=== PATIENT | male | born 1995 | race Caucasian/White ===

== ENCOUNTER 2017-02-13 00:16 | Emergency (ER) | payer SELFPAY ==
[~2017-02-13] VITALS: Ht 185.4 cm; Wt 129.3 kg
[~2017-02-13 00:16] MED LIST: AMOXICILLIN500 MG PO; BENADRYL50 MG PO; CEPHALEXIN500 M1 PO; HYDROCODONE BIT1 T11 PO; IBU400 MG PO; KEFLEX500 MG PO; MOTRIN800 MG PO; Motrin,Rufen800 MG PO; NKHM; PREDNICOT20 MG PO; ZITHROMAX250 MG PO
[2017-02-13 00:22] VITALS: BP 145/96
[2017-02-13] MEDS ORDERED: AUGMENTIN 875-875 MG PO (01:22)
== END 2017-02-13 01:46 | disposition home or self-care (01) ==
LOC: ED 00:16
DX: H61.22 Impacted cerumen, left ear (principal); J02.9 Acute pharyngitis, unspecified; Z88.2 Allergy status to sulfonamides

== ENCOUNTER 2020-08-31 11:55 | Emergency (ER) | payer BC ==
[~2020-08-31] VITALS: Wt 122.5 kg
[~2020-08-31 11:55] MED LIST changes: +AUGMENTIN 875-875 MG PO
[2020-08-31 12:10] VITALS: BP 148/62
[2020-08-31] MEDS ORDERED: OFLOXACIN 5 ML5 M3 OT (12:12)
[2020-08-31] MEDS ORDERED: METHOCARBAMOL750 M1 PO (12:12)
[2020-08-31] MEDS ORDERED: Tobrex Ophth S2.5 ML OPH (12:27)
== END 2020-08-31 12:28 | disposition home or self-care (01) ==
LOC: ED 11:55
DX: S05.02XA Injury of conjunctiva and corneal abrasion without foreign body, left eye, initial encounter (principal); Z88.2 Allergy status to sulfonamides; Z79.899 Other long term (current) drug therapy; X58.XXXA Exposure to other specified factors, initial encounter; Y93.89 Activity, other specified; Y92.89 Other specified places as the place of occurrence of the external cause; Y99.8 Other external cause status

== ENCOUNTER → 2022-08-04 | Outpatient (CLI) | payer OTHER ==
[~2022-08-04] MED LIST changes: +METHOCARBAMOL750 M1 PO; +OFLOXACIN 5 ML5 M3 OT; +Tobrex Ophth S2.5 ML OPH
== END | disposition home or self-care (01) ==
LOC: LAB 18:24
PROVIDERS: ATTEND Internal Medicine Cardiovascular Disease
DX: R00.2 Palpitations (principal)

== ENCOUNTER 2024-03-01 18:28 | Emergency (ER) | payer OTHER ==
[~2024-03-01] VITALS: Ht 185.4 cm; Wt 145.1 kg
[2024-03-01 18:34] VITALS: BP 149/86
[2024-03-01] MEDS ORDERED: methylPREDNISolone sod succ 125 MG VIAL IM ONE (18:40)
[2024-03-01] MEDS ORDERED: CYCLOBENZAPRINE5 M3 PO (18:40)
[2024-03-01] MEDS ORDERED: Ketorolac Tromethamine 30 MG/ML VIAL IM ONE (18:40)
== END 2024-03-01 19:11 | disposition home or self-care (01) ==
LOC: ED 18:28
DX: G89.29 Other chronic pain (principal); M54.50 Low back pain, unspecified; I10 Essential (primary) hypertension; F41.9 Anxiety disorder, unspecified; F31.9 Bipolar disorder, unspecified; Z88.2 Allergy status to sulfonamides; Z98.890 Other specified postprocedural states

== ENCOUNTER 2024-06-11 13:59 | Emergency (ER) | payer OTHER ==
[~2024-06-11] VITALS: Ht 185.4 cm; Wt 145.1 kg
[~2024-06-11 13:59] MED LIST changes: +CYCLOBENZAPRINE5 M3 PO
[2024-06-11 14:05] VITALS: BP 135/55
[2024-06-11] MEDS ORDERED: ACETAMINOPHEN 325 MG TAB PO ONE (14:25)
[2024-06-11 14:35] LABS: BASO # 0.1 10*3/uL (0.0-0.1); BASO % 0.7 % (0.0-1.0); EOS % 0.6 % (1.0-4.0); HEMATOCRIT 43.8 % (42.0-52.0); LYMPH # 1.1 10*3/uL (1.3-4.4); LYMPH % 16.4 % (27.0-41.0); MEAN CELL VOLUME 83.7 fl (80.0-94.0); MEAN CORPUSCULAR HGB 28.3 pg (27.0-31.0); MEAN CORPUSCULAR HGB CONC 33.8 g/dl (33.0-37.0); MEAN PLATELET VOLUME 8.7 fl (9.6-12.3); MONO # 1.2 10*3/uL (0.1-1.0); MONO % 17.7 % (3.0-9.0); NEUT # 4.5 10*3/uL (2.3-7.9); NEUT % 64.5 % (47.0-73.0); PLATELET COUNT AUTOMATED 270 10*3/uL (130-400); RED BLOOD COUNT 5.23 10*6/uL (4.50-5.90); RED CELL DISTRI WIDTH 12.3 % (0-14.5)
[2024-06-11 14:53] LABS: BUN 12 mg/dl (9-23); CHLORIDE 105 mmol/L (98-107); POTASSIUM 3.8 mmol/L (3.4-5.1)
== END 2024-06-11 17:08 | disposition home or self-care (01) ==
LOC: ED 13:59
PROVIDERS: Nurse Practitioner Family
DX: U07.1 COVID-19 (principal); Z88.2 Allergy status to sulfonamides; Z79.2 Long term (current) use of antibiotics; Z79.899 Other long term (current) drug therapy

== ENCOUNTER 2024-06-17 19:12 | Emergency (ER) | payer OTHER ==
[~2024-06-17] VITALS: Ht 185.4 cm; Wt 145.1 kg
[2024-06-17] MEDS ORDERED: ATHLETIC FOOT C30 GM T (19:32)
[2024-06-17 19:33] VITALS: BP 121/71
[2024-06-17] MEDS ORDERED: CLOTRIMAZOLE 15 GM TUBE T ONE (19:35)
== END 2024-06-17 19:48 | disposition home or self-care (01) ==
LOC: ED 19:12
DX: B35.6 Tinea cruris (principal); F31.9 Bipolar disorder, unspecified; Z88.2 Allergy status to sulfonamides; Z86.16 Personal history of COVID-19; Z98.890 Other specified postprocedural states

== ENCOUNTER 2024-08-08 23:50 | Inpatient (IN) | payer OTHER ==
[~2024-08-08] VITALS: Ht 185.4 cm; Wt 149.0 kg
[~2024-08-08 23:50] MED LIST changes: +ATHLETIC FOOT C30 GM T
[2024-08-09] VITALS (11 sets, daily range): BP systolic 120–145; BP diastolic 53–79
[2024-08-09] MEDS ORDERED: METOPROLOL SUCC25 M2 PO (00:04)
[2024-08-09 00:47] LABS: BASO # 0.1 10*3/uL (0.0-0.1); BASO % 0.6 % (0.0-1.0); EOS # 0.2 10*3/uL (0.0-0.4); EOS % 1.4 % (1.0-4.0); HEMATOCRIT 42.5 % (42.0-52.0); LYMPH # 2.6 10*3/uL (1.3-4.4); LYMPH % 20.8 % (27.0-41.0); MEAN CELL VOLUME 84.8 fl (80.0-94.0); MEAN CORPUSCULAR HGB 27.9 pg (27.0-31.0); MEAN CORPUSCULAR HGB CONC 32.9 g/dl (33.0-37.0); MEAN PLATELET VOLUME 8.7 fl (9.6-12.3); MONO # 0.9 10*3/uL (0.1-1.0); MONO % 6.9 % (3.0-9.0); NEUT # 8.7 10*3/uL (2.3-7.9); PLATELET COUNT AUTOMATED 264 10*3/uL (130-400); RED BLOOD COUNT 5.01 10*6/uL (4.50-5.90); WHITE BLOOD COUNT 12.4 10*3/uL (4.8-10.8)
[2024-08-09 01:06] LABS: BUN 15 mg/dl (9-23); CHLORIDE 107 mmol/L (98-107); POTASSIUM 3.7 mmol/L (3.4-5.1)
[2024-08-09] MEDS ORDERED: Piperacillin Sodium/Tazobact 50 ML IV ONE (06:05)
[2024-08-09] MEDS ORDERED: Ondansetron Hydrochloride 4 MG/2 ML VIAL IV PRN (07:45)
[2024-08-09] MEDS ORDERED: Magnesium Hydroxide 30 ML UDC PO PRN (07:45)
[2024-08-09] MEDS ORDERED: ACETAMINOPHEN 650 MG SUPP R PRN (07:45)
[2024-08-09] MEDS ORDERED: MORPHINE Sulfate 2 MG/ML SYR IV PRN (07:45)
[2024-08-09] MEDS ORDERED: BISACODYL 10 MG SUPP R PRN (07:45)
[2024-08-09] MEDS ORDERED: BISACODYL 5 MG TAB PO PRN (07:45)
[2024-08-09] MEDS ORDERED: Acetaminophen/Hydrocodone 5 MG/325 MG TABLET PO PRN (07:45)
[2024-08-09] MEDS ORDERED: ACETAMINOPHEN 325 MG TAB PO PRN (07:45)
[2024-08-09] MEDS ORDERED: Pantoprazole Sodium 40 MG TAB PO PRN (08:00)
[2024-08-09] MEDS ORDERED: Enoxaparin Sodium 40 MG/0.4 ML SYR SC SCH (10:00)
[2024-08-09] MEDS ORDERED: METOPROLOL SUCCINATE XR 25 MG TAB PO SCH ×2 (11:55→22:00)
[2024-08-09] MEDS ORDERED: Piperacillin Sodium/Tazobact 50 ML IV SCH (12:00)
[2024-08-09] MEDS ORDERED: TOPROL XL25 MG PO (12:57)
[2024-08-09 16:29] LABS: BASO # 0.1 10*3/uL (0.0-0.1); BASO % 1.1 % (0.0-1.0); EOS # 0.2 10*3/uL (0.0-0.4); EOS % 3.6 % (1.0-4.0); HEMATOCRIT 43.7 % (42.0-52.0); LYMPH # 2.1 10*3/uL (1.3-4.4); LYMPH % 31.8 % (27.0-41.0); MEAN CELL VOLUME 84.7 fl (80.0-94.0); MEAN CORPUSCULAR HGB 27.9 pg (27.0-31.0); MEAN PLATELET VOLUME 8.6 fl (9.6-12.3); MONO # 0.8 10*3/uL (0.1-1.0); MONO % 11.5 % (3.0-9.0); NEUT # 3.4 10*3/uL (2.3-7.9); NEUT % 51.8 % (47.0-73.0); PLATELET COUNT AUTOMATED 275 10*3/uL (130-400); RED BLOOD COUNT 5.16 10*6/uL (4.50-5.90); RED CELL DISTRI WIDTH 12.1 % (0-14.5); WHITE BLOOD COUNT 6.6 10*3/uL (4.8-10.8)
[2024-08-09] MEDS ORDERED: Lactated Ringer's Solution 1,000 ML IV ONE (17:35)
[2024-08-09] MEDS ORDERED: HYDROmorphONE Hydrochloride 0.5 MG/0.5 ML SYRINGE IV PRN (20:20)
[2024-08-09] MEDS ORDERED: ROCURONIUM BROMIDE 50 MG/5 ML SYRINGE IV ONE (21:15)
[2024-08-09] MEDS ORDERED: ACETAMINOPHEN 100 ML IV ONE (21:59)
[2024-08-09] MEDS ORDERED: Ketorolac Tromethamine 30 MG/ML VIAL IV PRN (22:00)
[2024-08-09] MEDS ORDERED: HYDROmorphONE Hydrochloride 1 ML IV ONE (22:20)
[2024-08-10] VITALS: BP 148/62
[2024-08-10 06:20] LABS: HEMATOCRIT 42.3 % (42.0-52.0); LYMPH # 0.8 10*3/uL (1.3-4.4); LYMPH % 8.4 % (27.0-41.0); MEAN CELL VOLUME 82.6 fl (80.0-94.0); MEAN CORPUSCULAR HGB 28.9 pg (27.0-31.0); MEAN PLATELET VOLUME 8.8 fl (9.6-12.3); MONO # 0.3 10*3/uL (0.1-1.0); NEUT # 8.1 10*3/uL (2.3-7.9); NEUT % 88.3 % (47.0-73.0); PLATELET COUNT AUTOMATED 301 10*3/uL (130-400); RED BLOOD COUNT 5.12 10*6/uL (4.50-5.90); RED CELL DISTRI WIDTH 11.9 % (0-14.5); WHITE BLOOD COUNT 9.2 10*3/uL (4.8-10.8)
[2024-08-10 06:43] LABS: ALKALINE PHOSPHATASE 89 U/L (46-116); BUN 11 mg/dl (9-23); CHLORIDE 105 mmol/L (98-107); POTASSIUM 4.2 mmol/L (3.4-5.1); SGPT/ALT 33 U/L (5-49); TOTAL PROTEIN 7.3 gm/dL (6.0-8.0)
[2024-08-10 08:00] VITALS: BP 138/67
[2024-08-10] MEDS ORDERED: Potassium Phosphate, Monobas 500 MG TAB PO SCH (08:50)
[2024-08-10] MEDS ORDERED: fentaNYL CITRATE 100 MCG/2 ML VIAL IV ONE (09:38)
[2024-08-10] MEDS ORDERED: DEXMEDETOMIDINE HCL 200 MCG/2 ML VIAL IV ONE (09:38)
[2024-08-10] MEDS ORDERED: MAGNESIUM SULFATE 1 GM/2 ML VIAL IV ONE (09:38)
[2024-08-10] MEDS ORDERED: ROCURONIUM BROMIDE 50 MG/5 ML SYRINGE IV ONE (09:38)
[2024-08-10] MEDS ORDERED: Ketamine Hydrochloride 500 MG/10 ML VIAL IV ONE (09:38)
[2024-08-10] MEDS ORDERED: Ondansetron Hydrochloride 4 MG/2 ML VIAL IV ONE (09:38)
[2024-08-10] MEDS ORDERED: SEVOFLURANE 250 ML BOT INH ONE (09:38)
[2024-08-10] MEDS ORDERED: Lidocaine Hydrochloride 2% 5 ML SDV IV ONE (09:38)
[2024-08-10] MEDS ORDERED: Dexamethasone Sodium Phospha 4 MG/ML VIAL IV ONE (09:38)
[2024-08-10] MEDS ORDERED: PROPOFOL 200 MG/20 ML VIAL IV ONE (09:38)
[2024-08-10] MEDS ORDERED: SUGAMMADEX SODIUM 200 MG/2 ML VIAL IV ONE (09:38)
[2024-08-10 12:00] VITALS: BP 117/53
== END 2024-08-10 15:30 | disposition home or self-care (01) | DRG 399 ==
LOC: ED 23:50 → EDHOLD 08-09 06:30 → 4E 08-09 13:34
PROVIDERS: Internal Medicine; Student in an Organized Health Care Education/Training Program; Surgery Trauma Surgery; ADMIT Student in an Organized Health Care Education/Training Program; ATTEND Student in an Organized Health Care Education/Training Program
PROC: 0DTJ4ZZ Resection of Appendix, Percutaneous Endoscopic Approach (ICD-10-PCS; principal; 2024-08-09)
DX: K35.80 Unspecified acute appendicitis (principal); D72.829 Elevated white blood cell count, unspecified; G89.29 Other chronic pain; M54.9 Dorsalgia, unspecified; F17.220 Nicotine dependence, chewing tobacco, uncomplicated; R00.2 Palpitations; E83.39 Other disorders of phosphorus metabolism; Z88.2 Allergy status to sulfonamides

== ENCOUNTER 2025-06-04 21:09 | Emergency (ER) | payer OTHER ==
[~2025-06-04] VITALS: Ht 187.9 cm; Wt 160.7 kg
[~2025-06-04 21:09] MED LIST changes: +METOPROLOL SUCC25 M2 PO; +TOPROL XL25 MG PO
[2025-06-04 21:25] VITALS: BP 140/87
[2025-06-04] MEDS ORDERED: LORazepam 1 MG TAB PO ONE (21:45)
== END 2025-06-04 22:18 | disposition home or self-care (01) ==
LOC: ED 21:09
DX: R07.89 Other chest pain (principal); Z91.018 Allergy to other foods; Z98.890 Other specified postprocedural states; F17.220 Nicotine dependence, chewing tobacco, uncomplicated